=== PATIENT | female | born 1995 | race Caucasian/White ===

== ENCOUNTER 2018-12-20 21:50 | Emergency (ER) | payer BC, MEDICAID ==
[~2018-12-20] VITALS: Ht 160 cm; Wt 54.4 kg
--- NOTE | 2018-12-20 22:05 | NUR ---
PT BIBFRIEND C/O LOWER BACK PAIN/FREQUENCY AND URGENCY WITH URINATION X 3 WEEKS. PT AOX4. NAD NOTED. RESP EVEN AND UNLABORED. PT ON MONITOR IN BED 10 WITH FRIEND AT BEDSIDE. WILL CONTINUE TO MONITOR.
--- NOTE | 2018-12-20 22:28 | NUR ---
BLOOD AND URINE COLLECTED AND SENT TO LAB
[2018-12-20] MEDS ORDERED: KETOROLAC TROMETHAMINE INJ 30 MG/ML VIAL IV ONE (22:30)
[2018-12-20] MEDS ORDERED: IV NS 0.9% 500 ML BAG IV ONE (22:30)
[2018-12-20 22:34] VITALS: BP 113/77
--- NOTE | 2018-12-20 22:35 | NUR ---
PT REFUSED TORADOL 15 MG IV
[2018-12-20 22:37] LABS: BASOPHILS % (AUTO) 0.6 % (0.0-2.0); HEMATOCRIT 38 % (33-45); HEMOGLOBIN 12.9 g/dL (11.5-14.8); LYMPHOCYTES % (AUTO) 29.7 % (20.0-44.0); MEAN CORPUSCULAR HGB CONC 34 g/dl (31.0-36.0); MEAN CORPUSCULAR VOLUME 93 fL (82-100); MONOCYTES # (AUTO) 0.7 /CMM (0.1-1.30); MONOCYTES % (AUTO) 9.8 % (2.0-12.0); NEUTROPHILS % (AUTO) 58.9 % (43.0-81.0); PLATELET COUNT (AUTO) 284 /CMM (150-450); RED BLOOD CELL COUNT(AUTO) 4.08 MIL/uL (4.0-5.2); WHITE BLOOD COUNT (AUTO) 6.8 K/uL (4.3-11.0)
[2018-12-20 22:43] LABS: APPEARANCE,URINE Clear (CLEAR); BILIRUBIN,URINE Negative (NEGATIVE); BLOOD, URINE Negative Ery/uL (NEGATIVE); COLOR,URINE Yellow (YELLOW); KETONES,URINE Negative (NEGATIVE); LEUKOCYTE ESTERASE ,URINE Negative (NEGATIVE); NITRITE, URINE Negative (NEGATIVE); PROTEIN,URINE Negative (NEGATIVE); UGLUCOSE Negative (NEGATIVE); UROBILINOGEN,URINE 0.2 EU/dL (0.2)
[2018-12-20 22:46] LABS: CREATININE 0.7 mg/dL (0.6-1.3); POTASSIUM 3.7 mmol/L (3.5-5.1)
[2018-12-20 22:58] LABS: ALBUMIN 4.3 g/dL (3.4-5.0); BILIRUBIN,DIRECT 0.2 mg/dL (0.0-0.2); BILIRUBIN,TOTAL 1.3 mg/dL (0.2-1.0); TOTAL PROTEIN, SERUM 7.5 g/dL (6.4-8.2)
--- NOTE | 2018-12-20 23:13 | NUR ---
CALLED RADIOLOGY TO ASK FOR SIGHTSEEING GUIDE
--- NOTE | 2018-12-20 23:55 | NUR ---
IV removed. Catheter intact and site benign. Pressure and 4x4 applied to site. No bleeding noted.Patient discharged to home in stable condition. Written and verbal after care instructions given. Patient verbalizes understanding of instruction. PT AMBULATORY WITH STEADY GAIT ACCOMPANIED BY FRIEND.
== END 2018-12-20 23:56 | disposition home or self-care (01) ==
LOC: ER 21:55
DX: N32.81 Overactive bladder (principal); F12.90 Cannabis use, unspecified, uncomplicated
CPT/HCPCS: 36415; 76770; 80048; 80076; 81001; 83690; 84703; 85025; 99284; J7030; 81000-TC

== ENCOUNTER 2021-03-28 00:04 | Emergency (ER) | payer MEDICAID ==
[~2021-03-28] VITALS: Ht 162.6 cm; Wt 53.5 kg
--- NOTE | 2021-03-28 02:05 | NUR ---
PT AAOX4. BIBSELF C/O HAD SYNCOPAL EP X3 DAYS AGO. REQUESTING FOR COVID TEST. PLACED IN BED 8 ON MONITOR AND PULSE OX. NO ACUTE DISTRESS NOTED.
[2021-03-28] MEDS ORDERED: IV NS 0.9% 1,000 ML BAG IV ONE (02:30)
--- NOTE | 2021-03-28 02:35 | NUR ---
BLOOD TAKEN AND SENT TO LAB
--- NOTE | 2021-03-28 02:36 | NUR ---
COVID SWAB DONE AND SENT TO LAB.
[2021-03-28 02:43] LABS: BASOPHILS % (AUTO) 0.4 % (0.0-2.0); EOSINOPHILS % (AUTO) 0.5 % (0.0-6.0); HEMATOCRIT 39 % (33-45); HEMOGLOBIN 13.3 g/dL (11.5-14.8); LYMPHOCYTES % (AUTO) 34.9 % (20.0-44.0); MEAN CORPUSCULAR HGB CONC 34 g/dl (31.0-36.0); MEAN CORPUSCULAR VOLUME 93 fL (82-100); MONOCYTES # (AUTO) 0.4 K/uL (0.1-1.30); MONOCYTES % (AUTO) 15.1 % (2.0-12.0); NEUTROPHILS # (AUTO) 1.4 K/uL (1.8-8.9); NEUTROPHILS % (AUTO) 49.1 % (43.0-81.0); PLATELET COUNT (AUTO) 177 K/uL (150-450); RED BLOOD CELL COUNT(AUTO) 4.24 MIL/uL (4.0-5.2); WHITE BLOOD COUNT (AUTO) 2.8 K/uL (4.3-11.0)
[2021-03-28 02:55] LABS: BILIRUBIN,URINE NEGATIVE (NEGATIVE); COLOR,URINE YELLOW (YELLOW); LEUKOCYTE ESTERASE ,URINE NEGATIVE (NEGATIVE); NITRITE, URINE NEGATIVE (NEGATIVE); PROTEIN,URINE NEGATIVE (NEGATIVE); UGLUCOSE NEGATIVE (NEGATIVE); UROBILINOGEN,URINE 0.2 EU/dL (0.2)
[2021-03-28 02:58] LABS: ALANINE AMINOTRANSFERASE 12 U/L (12-78); ALBUMIN 4.2 g/dL (3.4-5.0); ALKALINE PHOSPHATASE 69 U/L (46-116); ASPARTATE AMINOTRANSFERASE 21 U/L (15-37); BILIRUBIN,DIRECT 0.1 mg/dL (0.0-0.2); BILIRUBIN,TOTAL 0.3 mg/dL (0.2-1.0); CALCIUM, SERUM 8.7 mg/dL (8.5-10.1); CARBON DIOXIDE 27 mmol/L (21-32); CHLORIDE 103 mmol/L (98-107); CREATININE 0.7 mg/dL (0.6-1.3); GLUCOSE 91 mg/dL (74-106); POTASSIUM 3.9 mmol/L (3.5-5.1); SODIUM SERUM 140 mmol/L (136-145); TOTAL PROTEIN, SERUM 7.9 g/dL (6.4-8.2); UREA NITROGEN, BLOOD 9 mg/dL (7-18)
[2021-03-28 03:00] LABS: BACTERIA,URINE Few /HPF (None Seen); RBC,URINE 0-2 /HPF (0-2); SQUAMOUS EPITHELIAL CELL,UR Few /HPF (None Seen); WBC,URINE 0-2 /HPF (0-3)
--- NOTE | 2021-03-28 03:10 | NUR ---
GIVEN OJ AND CRACKERS.
[2021-03-28 03:56] VITALS: BP 120/80
--- NOTE | 2021-03-28 03:56 | NUR ---
Patient discharged to home in stable condition. Written and verbal after care instructions given. Patient verbalizes understanding of instruction.
== END 2021-03-28 03:57 | disposition home or self-care (01) ==
LOC: ER 00:08
DX: U07.1 COVID-19 (principal); E16.2 Hypoglycemia, unspecified; F12.10 Cannabis abuse, uncomplicated; R55 Syncope and collapse
CPT/HCPCS: 36415; 70450; 71045; 80048; 80076; 80307; 81001; 82962; 84484; 84703; 85025; 85730; 87426; 93005; 96360; 99285; C9803